=== PATIENT | male | born 1990 | race Hispanic/Latino ===

== ENCOUNTER 2017-04-14 20:09 | Emergency (ER) | payer SELFPAY ==
[~2017-04-14] VITALS: Ht 172.7 cm; Wt 110.5 kg
[2017-04-14 20:20] VITALS: BP 143/80
[2017-04-14 20:47] LABS: HEMATOCRIT 43.1 % (38.0-50.0); MCH 30.3 PG (29.0-34.0); MCHC 34.6 G/DL (30.0-36.0); MCV 87.6 FL (86-99); MEAN PLAT.VOLUME 10.1 uM^3 (9.0-12.4); PLATELET COUNT 253 K/uL (156-360); RBC DIS.WIDTH-CV 12.6 % (11.8-14.6); RBC DIS.WIDTH-SD 40.1 % (39-53); RED BLOOD COUNT 4.92 M/uL (4.00-5.50); WHITE BLOOD COUNT 9.2 K/uL (4.1-10.2)
[2017-04-14 20:52] LABS: CHLORIDE 107 mEq/L (99-109); POTASSIUM 3.4 mEq/L (3.7-5.4); SODIUM 138 mEq/L (136-147)
[2017-04-14 20:54] LABS: GLUCOSE 135 mg/dL (70-99)
[2017-04-14 20:55] LABS: ANION GAP 10 MEQ/L (2-14)
[2017-04-14 20:58] LABS: GFR ESTIMATE (CALCULATED) > 59 mL/min/; UREA NITROGEN (BUN) 15 mg/dL (9-23)
[2017-04-14 21:02] LABS: TROP-I INTERPRETATION NEGATIVE; TROPONIN-I < 0.01 ng/mL (0.0-0.30)
[2017-04-14 22:52] LABS: TROP-I INTERPRETATION NEGATIVE; TROPONIN-I < 0.01 ng/mL (0.0-0.30)
== END 2017-04-15 00:04 | disposition home or self-care (01) ==
LOC: EME 20:09
PROVIDERS: Emergency Medicine
DX: K29.70 Gastritis, unspecified, without bleeding (principal); R07.89 Other chest pain
CPT/HCPCS: 71020; 80048; 84484; 85027; 93005; 99281; 99283